=== PATIENT | male | born 1960 | race Caucasian/White ===

== ENCOUNTER 2017-12-07 12:07 | Outpatient (CLI) ==
--- NOTE | 2017-12-07 14:10 | DI ---
EXAM: RIGHT KNEE. HISTORY: Right knee injury. FINDINGS: Right knee four view. There is chondrocalcinosis most apparent lateral compartment. Mild decreased articular cartilage width in all three compartments, most noted medially. There is a trac e joint effusion suggested. No fracture is seen. IMPRESSION: Chondrocalcinosis. Early osteoarthritis, most apparent within the medial compartment. Trace joint e ffusion. No fracture.
== END 2017-12-07 12:08 | disposition home or self-care (01) ==
LOC: RAD 12:07
PROVIDERS: ATTEND Family Medicine
DX: S89.91XA Unspecified injury of right lower leg, initial encounter (principal)